=== PATIENT | female | born 1955 | race Caucasian/White ===

== ENCOUNTER 2018-05-24 07:08 | Emergency (ER) | payer BC ==
[2018-05-24 07:25] VITALS: BP 109/69
[2018-05-24] MEDS ORDERED: Acetaminophen TAB* 325 MG PO ONE (07:53)
[2018-05-24 08:05] LABS: Influenza A Molecular POSITIVE (Negative)
--- NOTE | 2018-05-24 08:14 | UC ---
Respiratory Complaint HPI - HPI Summary HPI Summary: Patient is a 62-year-old female with a one-day history of fever chills myalgias. She denies any cough but she hasn't has had some nasal congestion and has been clearing her throat a lot. Nausea vomiting or diarrhea. She denies any chest pain or shortness of breath. She denies any UTI symptoms. She denies any rash. - History of Current Complaint Chief Complaint: UCGeneralIllness Stated Complaint: FEVER BODYACHES Time Seen by Provider: 05/24/18 07:47 Hx Obtained From: Patient Onset/Duration: Gradual Onset Timing: Constant Severity Initially: Mild Severity Currently: Moderate Pain Intensity: 2 Pain Scale Used: 0-10 Numeric Aggravating Factors: Nothing Associated Signs And Symptoms: Positive: Fever, Chills, Nasal Congestion - Allergies/Home Medications Allergies/Adverse Reactions: Allergies Allergy/AdvReac Type Severity Reaction Status Date / Time aspirin Allergy Severe See Comment Verified 05/24/18 07:44 PMH/Surg Hx/FS Hx/Imm Hx Previously Healthy: Yes Cardiovascular History: Hypertension - Surgical History Surgical History: Yes Surgery Procedure, Year, and Place: TUBAL LIGATION 1980 - Family History Known Family History: Positive: Hypertension - Social History Alcohol Use: None Substance Use Type: None Smoking Status (MU): Never Smoked Tobacco Review of Systems All Other Systems Reviewed And Are Negative: Yes Constitutional: Positive: Fever, Chills, Fatigue Skin: Positive: Negative Eyes: Positive: Negative ENT: Positive: Nasal Discharge Respiratory: Positive: Negative Cardiovascular: Positive: Negative Gastrointestinal: Positive: Negative Genitourinary: Positive: Negative Motor: Positive: Negative Neurovascular: Positive: Negative Musculoskeletal: Positive: Arthralgia, Myalgia Neurological: Positive: Negative Psychological: Positive: Negative Physical Exam Triage Information Reviewed: Yes Appearance: Well-Appearing, No Pain Distress, Well-Nourished Vital Signs: Initial Vital Signs Temp 101.5 F 05/24/18 07:18 Pulse 120 05/24/18 07:18 Resp 16 05/24/18 07:18 BP 109/69 05/24/18 07:18 Pulse Ox 98 05/24/18 07:18 Vital Signs Reviewed: Yes Eyes: Positive: Conjunctiva Clear ENT: Positive: Hearing grossly normal, Pharynx normal, Nasal congestion, TMs normal, Uvula midline. Negative: Tonsillar swelling, Tonsillar exudate, Trismus , Muffled voice, Hoarse voice, Sinus tenderness Neck: Positive: Supple, Nontender, No Lymphadenopathy Respiratory: Positive: Lungs clear, Normal breath sounds, No respiratory distress Cardiovascular: Positive: RRR Musculoskeletal: Positive: ROM Intact, No Edema Neurological: Positive: Alert Psychological Exam: Normal Skin Exam: Normal UC Diagnostic Evaluation - Laboratory O2 Sat by Pulse Oximetry: 98 - normal/not hypoxic Diagnostic Studies Comment: UA + leuks. Influenza A (+) Respiratory Course/Dx - Differential Dx/Diagnosis Provider Diagnosis: Influenza A Discharge - Sign-Out/Discharge Documenting (check all that apply): Patient Departure All imaging exams completed and their final reports reviewed: No Studies - Discharge Plan Condition: Stable Disposition: HOME Prescriptions: Oseltamivir CAP* [Tamiflu CAP*] 75 mg PO BID #10 cap Patient Education Materials: Influenza (ED) Referrals: Tiffany Lowe MD [Primary Care Provider] - 5 Days (if not better) Additional Instructions: rest tylenol for pain or fever recheck for new or worsening symptoms - Billing Disposition and Condition Condition: STABLE Disposition: Home
--- NOTE | 2018-05-25 16:17 | UC ---
- Progress Note Progress Note: 05/25/2018 Throat culture positive for Strep Group B. Pt was also Positive for Influenza A and Rx Tamiflu at the clinic. Please call back patient and inform her of results and advised and a Rx of Amoxicillin PO was sent to the pharmacy. Thank you Comfort Shultz PA-C Course/Dx - Diagnoses Provider Diagnoses: Influenza A Discharge - Sign-Out/Discharge Documenting (check all that apply): Patient Departure - D/C home All imaging exams completed and their final reports reviewed: No Studies - Discharge Plan Condition: Stable Disposition: HOME Prescriptions: Amoxicillin PO (*) [Amoxicillin 500 MG CAP*] 500 mg PO Q12H #20 cap Oseltamivir CAP* [Tamiflu CAP*] 75 mg PO BID #10 cap Patient Education Materials: Influenza (ED) Referrals: Tiffany Lowe MD [Primary Care Provider] - 5 Days (if not better) Additional Instructions: rest tylenol for pain or fever recheck for new or worsening symptoms - Billing Disposition and Condition Condition: STABLE Disposition: Home
--- NOTE | 2018-05-26 12:45 | UC ---
- Progress Note Progress Note: Urine culture final: Group B strep Patient was started on amoxicillin on 05/25/18. No change in plan. Course/Dx - Diagnoses Provider Diagnoses: Influenza A Discharge - Sign-Out/Discharge Documenting (check all that apply): Post-Discharge Follow Up All imaging exams completed and their final reports reviewed: No Studies - Discharge Plan Condition: Stable Disposition: HOME Prescriptions: Amoxicillin PO (*) [Amoxicillin 500 MG CAP*] 500 mg PO Q12H #20 cap Oseltamivir CAP* [Tamiflu CAP*] 75 mg PO BID #10 cap Patient Education Materials: Influenza (ED) Referrals: Tiffany Lowe MD [Primary Care Provider] - 5 Days (if not better) Additional Instructions: rest tylenol for pain or fever recheck for new or worsening symptoms - Billing Disposition and Condition Condition: STABLE Disposition: Home
== END 2018-05-24 08:20 | disposition home or self-care (01) ==
LOC: UCEAST 07:08
DX: J10.1 Influenza due to other identified influenza virus with other respiratory manifestations (principal)
CPT/HCPCS: 81003; 87086; 87088; 99212; A9270-GY; G0463

== ENCOUNTER 2019-01-17 10:48 | Emergency (ER) | payer BC ==
--- NOTE | 2019-01-17 11:13 | ED ---
GI/ HPI - HPI Summary HPI Summary: This patient is a 63 year old female presenting to [facility] with a chief complaint of possible hernia since 2 days ago. She saw her PCP with LLQ pain and her PCP told her to come here after potentially palpating the hernia. She states the pain is an intermittent pain and that the pain increases with coughing and straining. She states she is not currently in any pain. She states she has had a poor appetite today and reports nausea. When she has pain, she rates it 5/10 in severity. Pt denies any fever, chills, erythema of eyes, sore throat, CP, SOB , cough, vomiting, dysuria, hematuria, myalgia, edema, rash, or dizziness. - History of Current Complaint Chief Complaint: EDAbdPain Time Seen by Provider: 01/17/19 11:06 Stated Complaint: POSS HERNIA PER PT Hx Obtained From: Patient Timing: Lasting Days Pain Intensity: 5 Location of Pain: LLQ - Allergy/Home Medications Allergies/Adverse Reactions: Allergies Allergy/AdvReac Type Severity Reaction Status Date / Time aspirin Allergy Severe See Comment Verified 01/17/19 10:51 PMH/Surg Hx/FS Hx/Imm Hx Endocrine/Hematology History: Denies: Hx Diabetes, Hx Thyroid Disease Cardiovascular History: Reports: Hx Hypertension - on med Denies: Hx Pacemaker/ICD Respiratory History: Denies: Hx Asthma, Hx Chronic Obstructive Pulmonary Disease (COPD), Other Respiratory Problems/Disorders GI History: Denies: Hx Ulcer Sensory History: Denies: Hx Hearing Aid Psychiatric History: Denies: Hx Panic Disorder - Cancer History Hx Chemotherapy: No Hx Radiation Therapy: No - Surgical History Surgery Procedure, Year, and Place: TUBAL LIGATION 1980 Infectious Disease History: No Infectious Disease History: Denies: Hx Clostridium Difficile, Hx Hepatitis, Hx Human Immunodeficiency Virus (HIV), Hx of Known/Suspected MRSA, Hx Shingles, Hx Tuberculosis, Hx Known/ Suspected VRE, Traveled Outside the [place] in Last 30 Days - Family History Known Family History: Positive: Hypertension - Social History Alcohol Use: None Substance Use Type: Reports: None Hx Tobacco Use: No Smoking Status (MU): Never Smoked Tobacco Review of Systems Negative: Fever, Chills Negative: Erythema Negative: Sore Throat Negative: Chest Pain Negative: Shortness Of Breath, Cough Positive: Abdominal Pain, Nausea. Negative: Vomiting Negative: dysuria, hematuria Negative: Myalgia, Edema Negative: Rash Neurological: Other - Neg: Dizziness All Other Systems Reviewed And Are Negative: No Physical Exam - Summary Physical Exam Summary: Constitutional: Well-developed, Well-nourished, Alert. (-) Distressed Skin: Warm, Dry HENT: Normocephalic; Atraumatic Eyes: Conjunctiva normal Neck: Musculoskeletal ROM normal neck. (-) JVD, (-) Stridor, (-) Tracheal deviation Cardio: Rhythm regular, rate normal, Heart sounds normal; Intact distal pulses; The pedal pulses are 2+ and symmetric. Radial pulses are 2+ and symmetric. (-) Murmur Pulmonary/Chest wall: Effort normal. (-) Respiratory distress, (-) Wheezes, (-) Rales Abd: Soft, (-) tenderness, (-) Distension, (-) Guarding, (-) Rebound Musculoskeletal: (-) Edema Lymph: (-) Cervical adenopathy Neuro: Alert, Oriented x3 Psych: Mood and affect Normal Rectal: Rn Field Case Manager Crissy present. Palpable umbilical hernia with mild tenderness. Triage Information Reviewed: Yes Vital Signs On Initial Exam: Initial Vitals Temp Pulse Resp BP Pulse Ox 99.3 F 100 20 118/88 98 01/17/19 10:51 01/17/19 10:51 01/17/19 10:51 01/17/19 10:51 01/17/19 10:51 Vital Signs Reviewed: Yes Diagnostics - Vital Signs Vital Signs Temp Pulse Resp BP Pulse Ox 01/17/19 10:51 99.3 F 100 20 118/88 98 - Laboratory Result Diagrams: 01/17/19 11:51 01/17/19 11:57 Lab Statement: Any lab studies that have been ordered have been reviewed, and results considered in the medical decision making process. - CT Abd/Pel CT Interpretation Completed By: Radiologist Summary of CT Findings: Thickening of the wall of the sigmoid colon with adjacent interstitial stranding nonspecific although most consistent with diverticulitis. Consider a follow-up. ED Provider has reviewed this report. GIGU Course/Dx - Course Course Of Treatment: This patient is a 63 year old female presenting to [facility] with a chief complaint of possible hernia. Physical exam was remarkable for an umbilical hernia, with no signs of obstruction or strangulation. CT Abd/Pel was suggestive of diverticulitis. A plan for discharge and follow up with PCP and surgery was discussed with the patient and she was agreeable with this plan. - Diagnoses Provider Diagnoses: Diverticulitis, Umbilical hernia Discharge ED - Sign-Out/Discharge Documenting (check all that apply): Patient Departure - Discharge Patient Received Moderate/Deep Sedation with Procedure: No - Discharge Plan Condition: Stable Disposition: HOME Prescriptions: Ciprofloxacin TAB* [Cipro 500 MG TAB*] 500 mg PO BID #20 tab Ciprofloxacin TAB* [Cipro 500 MG TAB*] 500 mg PO BID #20 tab HYDROcodone/ACETAMIN 5-325 MG* [Beaver 5-325 TAB*] 1 tab PO Q6H PRN #10 tab MDD 4 PRN Reason: Pain - Severe HYDROcodone/ACETAMIN 5-325 MG* [Beaver 5-325 TAB*] 1 tab PO Q6H PRN #10 tab MDD 4 PRN Reason: Pain - Severe metroNIDAZOLE [Flagyl 500 MG TAB] 500 mg PO TID #30 tab metroNIDAZOLE [Flagyl 500 MG TAB] 500 mg PO TID #30 tab Patient Education Materials: Umbilical Hernia (ED), Diverticulitis (ED) Referrals: Tiffany Lowe MD [Primary Care Provider] - [facility] [Provider Group] Additional Instructions: Follow up with your primary care provider and surgery in 3 days. Return to the ED with new or worsening symptoms. - Attestation Statements Document Initiated by Scribe: Yes Documenting Scribe: Sameer Rosario Provider For Whom Scribe is Documenting (Include Credential): Willy Rendon MD Scribe Attestation: Sameer Cook, scribed for Willy Rendon MD on 01/17/19 at 1348. Status of Scribe Document: Ready
[2019-01-17] MEDS ORDERED: NS 0.9% 500 ML* 500 ML IV ONE (11:27)
[2019-01-17] MEDS ORDERED: Morphine 4 MG/ML VIAL (1 ml) 4 MG/ML VIAL IV ONE (11:27)
[2019-01-17] MEDS ORDERED: Ondansetron INJ* 2 MG/ML VIAL IV ONE (11:27)
[2019-01-17 12:13] LABS: ABS Basophils 0.1 10^3/ul (0-0.2); ABS Eosinophils 0.1 10^3/ul (0-0.6); ABS Lymphocytes 1.8 10^3/ul (1.0-4.8); ABS Monocytes 0.9 10^3/ul (0-0.8); ABS Neutrophils 10.6 10^3/ul (1.5-7.7); Eosinophil % 0.4 %; Hematocrit 41 % (35-47); Hemoglobin 14.3 g/dL (12.0-16.0); Lymphocyte % 13.7 %; Mean Corpuscular HGB Conc 35 g/dL (31-36); Mean Corpuscular Hemoglobin 31 pg (27-31); Mean Corpuscular Volume 89 fL (80-97); Mean Platelet Volume 7.7 fL (7.4-10.4); Nucleated Red Blood Cells % 0.2; Platelet Count 391 10^3/uL (150-450); Red Blood Count 4.64 10^6 /uL (3.70-4.87); Red Cell Distribution Width 13 % (10-15); White Blood Count 13.4 10^3/uL (3.5-10.8)
--- OUTSIDE RECORDS SUMMARY | 2019-01-17 12:20 | XMS REPORT | Continuity of Care Document ---
:1955 External Reference #:[id number] Author Name Ángel Nunez N.P. Address [address] [place] [address] [address] [place] [address] Problems Active Problems Provider Date Osteoarthritis Tiffany Lowe M.D. Onset: 01/16/2013 Seasonal allergy Maida Lang FNP Onset: 01/09/2014 Environmental allergy Maida Lang FNP Onset: 01/09/2014 Peptic reflux disease Olivia Abbasi FNP Onset: 09/09/2013 Benign essential hypertension Olivia Abbasi FNP Onset: 01/09/2014 Binocular vision disorder Tiffany Lowe M.D. Onset: 08/05/2014 Atopic dermatitis Tiffany Lowe M.D. Onset: 08/05/2014 Chronic allergic conjunctivitis Tiffany Lowe M.D. Onset: 08/05/2014 Mixed hyperlipidemia Tiffany Lowe M.D. Onset: 08/05/2014 Vitamin D deficiency Tiffany Lowe M.D. Onset: 02/23/2015 Social History Type Date Description Comments Sex Unknown ETOH Use Denies alcohol use Tobacco Use Start: Unknown Patient has never smoked Smoking Status Reviewed: 06/11/17 Patient has never smoked Allergies, Adverse Reactions, Alerts Active Allergies Reaction Severity Comments Date Aspirin 01/16/2013 Inactive Allergies NKDA 01/16/2013 Medications Active Medications SIG Qnty Indications Ordering Date Provider Nystatin-Triamcinolone apply to 30gm B35.4 Tiffany Lowe 08/06/2018 affected area Tenisha Garcia 492864-2.1Unit/GM-% twice a day as Ointment needed Ibuprofen 1 by mouth 90tabs M54.5 [facility] 01/15/2018 800mg Tablets three times a M., M.D. day as needed Pantoprazole Sodium 1 by mouth 90tabs B37.3 [facility] 09/04/2016 40mg Tablets every day M., M.DHayden QUINTEROS Vitamin D3 2 by mouth 90caps B37.3 [facility] 02/23/2015 1000Unit Capsules every day M., M.D. Hydrochlorothiazide take 1 tablet 90tabs I10 [facility] 01/23/2014 25mg Tablets by mouth in in M., M.D. the morning daily I10 Immunizations CPT Code Status Date Vaccine Lot # [id number] Given 01/02/2007 Td 7 Years And Older Vital Signs Date Vital Result Comment 01/17/2019 9:34am BP Systolic 118 mmHg BP Diastolic 88 mmHg Height 61 inches 5'1" Weight 162.00 lb BMI (Body Mass Index) 30.6 kg/m2 Heart Rate 103 /min Respiratory Rate 16 /min 08/06/2018 1:53pm BP Systolic 116 mmHg BP Diastolic 64 mmHg Height 61 inches 5'1" Weight 166.00 lb BMI (Body Mass Index) 31.4 kg/m2 Heart Rate 88 /min Respiratory Rate 18 /min Results Test Date Facility Test Result H/L Range Note CBC With Diff 08/06/2018 [facility] WBC 9.1 10*3/uL (4.1-11.0) [address] [facility] (607)- - RBC 4.52 10*6/uL (4.00-5.40) HGB 13.8 g/dL (12.0-16.0) HCT 41.4 % (36.0-47.0) MCV 91.4 fL (80.0-95.0) MCH 30.6 pg (27.0-32.0) MCHC 33.4 g/dL (32.0-36.0) RDW 13.2 % (10.5-14.5) PLT 393 10*3/uL (150-450) MPV 8.1 fL (7.1-10.7) Neut % 56.0 % (35.0-75.0) Lymph % 34.0 % (16.0-52.0) [place] % 7.8 % (0.0-8.0) Eos % 1.9 % (0.0-5.0) Baso % 0.3 % (0.0-4.0) Neut # 5.1 10*3/uL (1.8-7.7) Lymph # 3.1 10*3/uL (1.2-4.8) [place] # 0.7 10*3/uL (0.0-0.8) Eos # 0.2 10*3/uL (0.0-0.5) Baso # 0.0 10*3/uL (0.0-0.2) CMP 08/06/2018 [facility] Sodium 139 mmol/L (136-145) [facility] (607)- - Potassium 3.6 mmol/L (3.6-5.2) Chloride 102 mmol/L (100-108) Co2 30 mmol/L (22-31) Anion Gap 7 mmol/L (7-16) Urea Nitrogen 12 mg/dL (7-24) Creatinine 0.98 mg/dL (0.60-1.00) BUN/Creat Ratio 12.2 RATIO (10.0-20.0) Glucose 114 mg/dL High (70-99) Calcium 9.2 mg/dL (8.4-10.2) Total Protein 7.8 g/dL (6.4-8.2) Albumin 3.9 g/dL (3.2-4.5) Globulin 3.9 g/dL (2.7-4.3) Alb/Glob Ratio 1.0 RATIO Alkaline Phosphatase 55 U/L (45-117) Bilirubin,Total 0.6 mg/dL (0.0-1.0) Ast (Sgot) 15 U/L (11-39) Alt (SGPT) 23 U/L (12-78) GFR 58 ml/min/1.73m2 Low (>59) GFR ( Amer) >60 ml/min/1.73m2 (>59) GFR Interpretation <SEE NOTE> 1 Lipid 08/06/2018 [facility] Cholesterol @ 209 mg/dL High (0-200) [facility] (607)- - Triglyceride @ 326 mg/dL High (30-200) HDL Cholesterol @ 35 mg/dL Low (>40) 2 Chol/HDL Ratio 6.0 RATIO 3 LDL Chol (Calc) UNABLE TO CALCUL <SEE NOTE> mg/dL (<130) 4 Laboratory 08/06/2018 [facility] TSH,Ultrasensitive @ 2.400 (0.360- 4.170) test finding [address] [facility] mIU/L (607)- - 25 Hydroxy Vit D @ 36 ng/mL (31-100) 5 Direct LDL @ 118 mg/dL (<130) 6 1 NORMAL KIDNEY FUNCTION OR MILD DISEASE - GFR >OR= 60 CHRONIC KIDNEY DISEASE - GFR 15 - 59 RENAL FAILURE - GFR <15 Est. GFR calculation based on the MDRD study equation, which assumes a steady state for creatinine. Est. GFR should not be used for medication dosing. 2 PER NCEP ATP III GUIDELINES: RESULTS LOWER THAN 40 MG/DL ARE SUGGESTIVE OF INCREASED RISK FOR CORONARY ARTERY DISEASE. RESULTS > OR = TO 60 MG/DL ARE CONSIDERED A NEGATIVE RISK FACTOR. 3 INTERPRETATION OF CHOL-HDL RATIO CHD RISK FEMALE MALE VERY HIGH >8.3 >14.3 HIGH 5.6- 8.3 6.7- 14.3 AVERAGE 3.7- 5.6 4.0- 6.7 BELOW AVERAGE 2.5- 3.7 2.7- 4.0 PROTECTED <2.5 <2.7 4 UNABLE TO CALCULATE VALID LDL DUE TO INTERFERENCE FROM ELEVATED TRIGLYCERIDES (GREATER THAN 300 MG/DL). SEE RESULT FOR DIRECT LDL. 5 A REVIEW OF THE LITERATURE SUGGESTS THE FOLLOWING RANGES FOR THE CLASSIFICATION OF 25-OH VITAMIN D STATUS: VITAMIN D STATUS 25-OH VITAMIN D DEFICIENCY <20 NG/ML INSUFFICIENCY 20-30 NG/ML SUFFICIENCY 31 - 100 NG/ML TOXICITY > 100 NG/ML A PEDIATRIC REFERENCE RANGE HAS NOT BEEN ESTABLISHED USING THIS METHOD. 6 PER NCEP ATP III GUIDELINES: OPTIMAL < 100 NEAR OPTIMAL 100 - 129 BORDERLINE HIGH 130 - 159 HIGH 160 - 189 VERY HIGH > 189 Procedures Date Code Description Status 08/06/2018 27340 EKG Completed Medical Devices Description No Information Available Encounters Type Date Location Provider Dx Diagnosis Office Visit 01/17/2019 [facility] Ángel Nunez, I10 Essential ( primary) 9:30a N.P. hypertension E78.2 Mixed hyperlipidemia K21.0 Gastro-esophageal reflux disease with esophagitis M15.9 Polyosteoarthritis, unspecified E55.9 Vitamin D deficiency, unspecified J30.9 Allergic rhinitis, unspecified L20.9 Atopic dermatitis, unspecified M79.605 Pain in left leg B35.4 Tinea corporis M54.5 Low back pain I44.4 Left anterior fascicular block R10.84 Generalized abdominal pain K42.9 Umbilical hernia without obstruction or gangrene Z68.31 Body mass index (BMI) 31.0-31.9, adult Office Visit 08/06/2018 2:15p [facility] Tiffany Lowe I10 Essential ( primary) Tenisha Garcia hypertension E78.2 Mixed hyperlipidemia K21.0 Gastro-esophageal reflux disease with esophagitis M15.9 Polyosteoarthritis, unspecified E55.9 Vitamin D deficiency, unspecified Z68.31 Body mass index (BMI) 31.0-31.9, adult J30.9 Allergic rhinitis, unspecified L20.9 Atopic dermatitis, unspecified M79.605 Pain in left leg B35.4 Tinea corporis Z00.01 Encounter for general adult medical exam w abnormal findings M54.5 Low back pain I44.4 Left anterior fascicular block Assessments Date Code Description Provider 01/17/2019 I10 Essential (primary) hypertension Ángel Nunez, N.P. 01/17/2019 E78.2 Mixed hyperlipidemia Ángel Nunez, N.P. 01/17/2019 K21.0 Gastro-esophageal reflux disease with Ángel Nunez N.P. esophagitis 01/17/2019 M15.9 Polyosteoarthritis, unspecified Ángel Nunez, N.P. 01/17/2019 E55.9 Vitamin D deficiency, unspecified Ángel Nunez, N.P. 01/17/2019 J30.9 Allergic rhinitis, unspecified Ángel Nunez N.P. 01/17/2019 L20.9 Atopic dermatitis, unspecified Ángel Nunez N.PHayden 01/17/2019 M79.605 Pain in left leg Ángel Nunez N.P. 01/17/2019 B35.4 Tinea corporis Ángel Nunez N.P. 01/17/2019 M54.5 Low back pain Maria Dolores Lee.P. 01/17/2019 I44.4 Left anterior fascicular block Ángel Nunez N.P. 01/17/2019 R10.84 Generalized abdominal pain Ángel Nunez N.P. 01/17/2019 K42.9 Umbilical hernia without obstruction or Ángel Nunez N.PHayden gangrene 01/17/2019 Z68.31 Body mass index (BMI) 31.0-31.9, adult Ángel Nunez N.P. 08/06/2018 I10 Essential (primary) hypertension Tiffany Lowe M.D. 08/06/2018 E78.2 Mixed hyperlipidemia Tiffany Lowe M.D. 08/06/2018 K21.0 Gastro-esophageal reflux disease with Tiffany Lowe M.D. esophagitis 08/06/2018 M15.9 Polyosteoarthritis, unspecified Tiffany Lowe M.D. 08/06/2018 E55.9 Vitamin D deficiency, unspecified Tiffany Lowe M.D. 08/06/2018 Z68.31 Body mass index (BMI) 31.0-31.9, adult Tiffany Lowe M.D. 08/06/2018 J30.9 Allergic rhinitis, unspecified Tiffany Lowe M.D. 08/06/2018 L20.9 Atopic dermatitis, unspecified Tiffany Lowe M.D. 08/06/2018 M79.605 Pain in left leg Tiffany Lowe M.D. 08/06/2018 B35.4 Tinea corporis Tiffany Lowe M.D. 08/06/2018 Z00.01 Encounter for general adult medical Tiffany Lowe M.D. examination with abnorma 08/06/2018 M54.5 Low back pain Tiffany Lowe M.D. 08/06/2018 I44.4 Left anterior fascicular block Tiffany Lowe M.D. Plan of Treatment No Information Available Functional Status Functional Condition Comment Date Status Glasses Active Bifocal glasses Active Mental Status Description No Information Available Referrals Description No Information Available
[2019-01-17 12:28] LABS: Albumin 4.3 g/dL (3.2-5.2); Albumin/Globulin Ratio 1.2 (1-3); BUN/Creatinine Ratio 16.7 (8-20); C Reactive Protein 66.89 mg/L (<8.01); Calcium 10.2 mg/dL (8.6-10.3); EGFR Non-African American 51.2 (>60); Globulin 3.7 g/dL (2-4); Potassium 3.5 mmol/L (3.5-5.0); Total Bilirubin 1.1 mg/dL (0.2-1.0)
[2019-01-17] MEDS ORDERED: Iodixanol* (CONTRAST) 320 MG/ML 100 ML SDV IV ONE (12:30)
[2019-01-17 13:28] LABS: Urine Appearance Clear; Urine Bacteria Absent (Absent); Urine Bilirubin Negative (Negative); Urine Blood 1+ (Negative); Urine Color Straw; Urine Glucose Negative (Negative); Urine Ketones Negative (Negative); Urine Nitrite Negative (Negative); Urine Protein Negative (Negative); Urine Red Blood Cell 1+(3-5/hpf) (Absent); Urine Specific Gravity 1.005 (1.010-1.030); Urine Squamous Epithelial Cell Present (Absent); Urine Urobilinogen Negative (Negative); Urine White Blood Cell Trace(0-5/hpf) (Absent)
[2019-01-17] MEDS ORDERED: Ciprofloxacin TAB* 500 MG PO ONE (13:34)
[2019-01-17] MEDS ORDERED: metroNIDAZOLE TAB* 250 MG PO ONE (13:34)
[2019-01-17 14:21] VITALS: BP 119/79
--- NOTE | 2019-01-21 05:41 | PN ---
Progress Note - Progress Note Date of Service: 01/17/19 Note: Patient was given ciprofloxacin which is not sensitive to organism. Patient will be given macrobid which is sensitive to MRSA 75-100,000 Called patient at 730am to make aware Will medicinal plant picker at pharmacy
== END 2019-01-17 14:15 | disposition home or self-care (01) ==
LOC: ED 10:48
DX: K57.32 Diverticulitis of large intestine without perforation or abscess without bleeding (principal); K42.9 Umbilical hernia without obstruction or gangrene; R11.0 Nausea; I10 Essential (primary) hypertension; Z88.6 Allergy status to analgesic agent
CPT/HCPCS: 36415; 74177; 80053; 81003; 81015; 83605; 83690; 85025; 86140; 87077; 87086; 87186; 96361; 96374; 96375; 99285; A9270-GY; J2270; J2405; Q9967

== ENCOUNTER 2019-03-18 10:44 | Day surgery (SDC) | payer BC ==
[~2019-03-18 10:44] MED LIST: Acetaminophen TAB* 325 MG PO ONE; Buffered Lidocaine 1% SYRIN* 1 ML/SYRINGE INTRADERM ONE; Lactated Ringers 1000 ML Bag* 1,000 ML IV SCH
[2019-03-18] MEDS ORDERED: Acetaminophen TAB* 325 MG ONE (11:41)
[2019-03-18] MEDS ORDERED: ceFAZolin 2 GM in NS PREMIX(*) 2 GM/100 ML BAG IVPB ONE (11:41)
[2019-03-18] MEDS ORDERED: fentaNYL* 50 MCG/ML 2 ML VIAL (100 MCG VIAL) ONE (12:08)
[2019-03-18] MEDS ORDERED: Midazolam* 1 MG/ML 2 ML VIAL (2 MG) ONE (12:08)
[2019-03-18] MEDS ORDERED: Propofol* 10 MG/ML 20 ML BTL ONE (12:11)
[2019-03-18] MEDS ORDERED: Lidocaine 1% INJ* 10 MG/ML 30 ML SDV ONE (12:49)
[2019-03-18] MEDS ORDERED: Bupivacaine 0.5% W/EPI SDV* 10 ML VIAL INJ ONE (12:49)
[2019-03-18] MEDS ORDERED: Dexamethasone IV* 4 MG/ML 1 ML (4 MG) ONE (13:47)
[2019-03-18] MEDS ORDERED: Ondansetron INJ* 2 MG/ML VIAL IV PRN (13:48)
[2019-03-18] MEDS ORDERED: Naloxone* 0.4 MG/ML 1 ML VIAL IV PRN (13:48)
[2019-03-18] MEDS ORDERED: HYDROmorphone INJ1* 1 MG/ML SYRINGE IV PRN (13:48)
[2019-03-18] MEDS ORDERED: oxyCODONE TAB* 5 MG TAB PO PRN (13:48)
[2019-03-18] MEDS ORDERED: EPHEDrine (Pressors)* 50 MG/ML VIAL ONE (13:48)
[2019-03-18] MEDS ORDERED: PROCHLORPERAZINE INJ 5 MG/ML 2 ML VIAL IV PRN (13:48)
[2019-03-18] MEDS ORDERED: diPHENhydraMINE IV* 50 MG/ML 1 ml VIAL (BENADRYL) IV PRN (13:48)
[2019-03-18 15:58] VITALS: BP 113/68
--- NOTE | 2019-03-18 20:50 | OP ---
CC: Dr. Tiffany Zamoranoi * DATE OF OPERATION: 03/18/19 - [facility] DATE OF : 55 SURGEON: Rodo Schultz MD PHOTOTYPESETTER OPERATOR: SHANICE Puga ANESTHESIOLOGIST: Sherri Colunga MD ANESTHESIA: General. PRE-OP DIAGNOSIS: Umbilical hernia. POST-OP DIAGNOSIS: Umbilical hernia. OPERATIVE PROCEDURE: Open repair umbilical hernia. ESTIMATED BLOOD LOSS: Minimal. IV FLUIDS: Crystalloid. SPECIMEN: None. DRAINS: None. COMPLICATIONS: None. COUNTS: Instrument, needle, and sponge counts were correct. OPERATIVE FINDIN cm umbilical hernia defect containing fat. DESCRIPTION OF PROCEDURE: The patient was brought to the operating room and placed on the table supine. Sequential compression devices were placed in both lower extremities. General anesthesia was administered. The patient's abdomen was prepped and draped in the usual sterile fashion. She received appropriate intravenous antibiotics and time-out was performed. Local anesthetic was infiltrated periumbilically. An infraumbilical incision was created and then sharp and blunt dissection were used to isolate the umbilical stalk. There was fat incarcerated within the hernia sac and this was dissected free from the periumbilical skin. The umbilical stalk was completely divided from the anterior abdominal wall and the hernia sac was dissected free. The omentum that was contained within the hernia was reduced. The edges of the hernia defect were identified. This measured approximately 1 cm. Closure was performed with a 0 Ethibond suture in [id number] fashion. After completing closure, the umbilical stalk was reapproximated with 3-0 Vicryl to the anterior abdominal wall. The wound was closed in 2 layers with 3-0 Vicryl for the subcutaneous tissues and 4- 0 Monocryl for the skin in a subcuticular fashion. Steri-Strips and dressing were applied. The patient tolerated the procedure well and was extubated uneventfully, transferred to recovery in stable condition. [id number]/[facility] #: [id number] MTDD
== END 2019-03-18 15:47 | disposition home or self-care (01) ==
LOC: OR 10:44
PROVIDERS: ATTEND Surgery
PROC: 0WQF0ZZ Repair Abdominal Wall, Open Approach (ICD-10-PCS; principal; 2019-03-18 14:15)
DX: K42.9 Umbilical hernia without obstruction or gangrene (principal); I10 Essential (primary) hypertension; K21.9 Gastro-esophageal reflux disease without esophagitis; Z88.6 Allergy status to analgesic agent; Z98.51 Tubal ligation status
CPT/HCPCS: A9270-GY; J0690; J1100; J2250; J2704; J3010

== ENCOUNTER 2019-06-11 07:36 | Emergency (ER) | payer BC ==
--- OUTSIDE RECORDS SUMMARY | 2019-06-11 07:46 | XMS REPORT | Continuity of Care Document ---
:1955 External Reference #:[id number] Author Name Tiffany Lowe M.D. Address [address] [place] [address] [place] [id number] Problems Active Problems Provider Date Osteoarthritis Tiffany [...] Tiffany Lowe 08/06/2018 affected area Tenisha Garcia 845178-6.1Unit/GM-% twice a day as Ointment needed Ibuprofen 1 by mouth 90tabs M54.5 [facility] 01/15/2018 800mg Tablets three times a M., M.D. day as needed Pantoprazole Sodium 1 by mouth 90tabs B37.3 [facility] 09/04/2016 40mg Tablets every day M., M.DHayden QUINTEROS Vitamin D3 2 by mouth 90caps B37.3 [facility] 02/23/2015 1000Unit Capsules every day M., M.D. Hydrochlorothiazide take 1 tablet 90tabs I10 [facility] 01/23/2014 25mg Tablets by mouth in in M., M.D. the morning daily I10 History Medications Cipro tab 1 twice a 30tabs [facility], 03/06/2019 - 500mg Tablets day M.D. 05/31/2019 Meclizine HCL take one tablet 180tabs H81.13 [facility], 01/22/2019 - 25mg by mouth every 4 M.D. 05/31/2019 Tablets hours as needed Immunizations CPT Code Status Date Vaccine Lot # [id number] Given 01/02/2007 Td 7 Years And Older Vital Signs Date Vital Result Comment 06/04/2019 2:40pm BP Systolic 120 mmHg BP Diastolic 60 mmHg Height 61 inches 5'1" Weight 162.00 lb BMI (Body Mass Index) 30.6 kg/m2 Heart Rate 80 /min Respiratory Rate 16 /min 03/12/2019 9:03am BP Systolic 125 mmHg BP Diastolic 67 mmHg Height 61 inches 5'1" Weight 160.00 lb BMI (Body Mass Index) 30.2 kg/m2 Heart Rate 75 /min Respiratory Rate 16 /min Results Test Acquired Date Facility Test Result H/L Range Note Laboratory test 06/04/2019 [facility] [place] TSH, <pending> finding [address] [facility] (607)- - Vitamin D 25 Hydroxy <pending> CBC Auto Diff 01/17/2019 [facility] White Blood 13.4 10^3/uL High 3.5 -10.8 Count Red Blood Count 4.64 10^6/uL Normal 3.70-4.87 Hemoglobin 14.3 g/dL Normal 12.0-16.0 Hematocrit 41 % Normal 35-47 Mean Corpuscular Volume 89 fL Normal 80-97 Mean Corpuscular Hemoglobin 31 pg Normal 27-31 Mean Corpuscular HGB Conc 35 g/dL Normal 31-36 Red Cell Distribution Width 13 % Normal 10-15 Platelet Count 391 10^3/uL Normal 150-450 Mean Platelet Volume 7.7 fL Normal 7.4-10.4 Abs Neutrophils 10.6 10^3/uL High 1.5-7.7 Abs Lymphocytes 1.8 10^3/uL Normal 1.0-4.8 Abs Monocytes 0.9 10^3/uL High 0-0.8 Abs Eosinophils 0.1 10^3/uL Normal 0-0.6 Abs Basophils 0.1 10^3/uL Normal 0-0.2 Abs Nucleated RBC 0.0 10^3/uL Granulocyte % 79.0 % Lymphocyte % 13.7 % Monocyte % 6.3 % Eosinophil % 0.4 % Basophil % 0.6 % Nucleated Red Blood Cells % 0.2 Laboratory test 01/17/2019 [facility] Lactic Acid 1.5 mmol/L Normal 0.5-2.0 1 finding Comp Metabolic 01/17/2019 [facility] Sodium 136 mmol/L Normal 135- 145 Panel Potassium 3.5 mmol/L Normal 3.5-5.0 Chloride 97 mmol/L Low 101-111 Co2 Carbon Dioxide 29 mmol/L Normal 22-32 Anion Gap 10 mmol/L Normal 2-11 Glucose 145 mg/dL High 70-100 Blood Urea Nitrogen 18 mg/dL Normal 6-24 Creatinine 1.08 mg/dL High 0.51-0.95 BUN/Creatinine Ratio 16.7 Normal 8-20 Calcium 10.2 mg/dL Normal 8.6-10.3 Total Protein 8.0 g/dL Normal 6.4-8.9 Albumin 4.3 g/dL Normal 3.2-5.2 Globulin 3.7 g/dL Normal 2-4 Albumin/Globulin Ratio 1.2 Normal 1-3 Total Bilirubin 1.10 mg/dL High 0.2-1.0 Alkaline Phosphatase 55 U/L Normal 34-104 Alt 15 U/L Normal 7-52 Ast 16 U/L Normal 13-39 Egfr Non- 51.2 >60 Egfr 62.0 >60 2 Laboratory test finding 01/17/2019 [facility] Lipase 17 U/L Normal 11.0-82.0 C Reactive Protein 66.89 mg/L High <8.01 Urinalysis Profile 01/17/2019 [facility] Urine Color Straw Urine Appearance Clear Urine Specific [place] 1.005 Low 1.010-1.030 Urine pH 6.0 Normal 5-9 Urine Urobilinogen Negative Negative Urine Ketones Negative Negative Urine Protein Negative Negative Urine Leukocytes Negative Negative Urine Blood 1+ Abnormal Negative Urine Nitrite Negative Negative Urine Bilirubin Negative Negative Urine Glucose Negative Negative Urine White Blood Cell Trace(0-5/hpf) Absent Urine Red Blood Cell 1+(3-5/hpf) Abnormal Absent Urine Bacteria Absent Absent Urine Squamous Epithelial Cell Present Abnormal Absent Urine Culture And 01/17/2019 [facility] Urine Culture SEE RESULT BELOW 3 Sensitivities 1 [facility] Severe Sepsis and Septic Shock Management Bundle Measure requires all lactic acids initially measuring >2.0 mmol/L be repeated. 2 Because ethnic data is not always readily available, this report includes an eGFR for both -Americans and non- Americans. The National Kidney Disease Education Program (NKDEP) does not endorse the use of the MDRD equation for patients that are not between the ages of 18 and 70, are , have extremes of body size, muscle mass, or nutritional status, or are non- or non-. According to the National Kidney Foundation, irrespective of diagnosis, the stage of the disease is based on the level of kidney function: Stage Description GFR(mL/min/1.73 m(2)) 1 Kidney damage with normal or decreased GFR 90 2 Kidney damage with mild decrease in GFR 60-89 3 Moderate decrease in GFR 30-59 4 Severe decrease in GFR 15-29 5 Kidney failure <15 (or dialysis) 3 SEE RESULT BELOW Name: DONNAKAT A : [address]: Willy Rendon MD Acct: [id number] Unit: [id number] AGE: 63 Location: ED Re01/17/19 SEX: F Status: DEP ER SPEC: [id number] TONY: 01/17/19-1314 [facility] DR: Willy Rendon MD REQ: [id number] RECD: 01/17/19 STATUS: ULISSES FITZPATRICK DR: Tiffany Lowe MD _ SOURCE: URINE SPDESC: ORDERED: Urine Culture Procedure Result Reported Site Urine Culture Final 01/20/19- 0804 ML Organism 1 MRSA [place] Count 75-100,000 (Many) CFU/ML Organism 2 STREP GROUP B [place] Count 10-25,000 (Moderate) CFU/ML Organism 3 NORMAL JOHANA [place] Count 10-25,000 (Moderate) CFU/ML Susceptibility testing of penicillins and other B-lactams approved by FDA for treatment of Streptococcus pyogenes (Group A Strep) and Streptococcus agalactiae (Group B Strep) is not necessary for clinical purposes and need not be done routinely, since as with vancomycin, resistant strains have not been recognized. (CLSI G913-B58;p.66) Positive isolates will be saved for one week. Please call the Microbiology Laboratory if further susceptibility testing is needed. MRSA- CONSISTENT WITH PREVIOUS RESULTS. 1. MRSA M.I.C. RX --------- ------ Penicillin >=0.5 R Gentamicin <=0.5 S Linezolid 2 S Nitrofurantoin <=16 S Oxacillin >=4 R * Quinupristin/Dalfopristin <=0.25 S Rifampin <=0.5 S Tetracycline <=1 S Doxycycline - Deduced S * Minocycline - Deduced S Trimethoprim/Sulfamethoxazole <=10 S Vancomycin 1 S CONTINUED ON NEXT PAGE DEPARTMENT OF PATHOLOGY, [address] [place] [address] Rayshawn Walker M.D. Director [facility] # [id number] Specimen: [id number] Collected: 01/17/19 Received: 01/17/19 (Continued) Procedure Result Reported Site Urine Culture Final (continued) 01/20/19- 803 1. MRSA (continued) M.I.C. RX --------- ------ Imipenem-Deduced R * Ampicillin/Sulbactam-Deduced R Cefazolin-Deduced R * These antibiotics are not available in the [facility] Formulary Contact the Microbiology Department for any additional antibiotic reporting. * ML - Main Lab . END OF REPORT DEPARTMENT OF PATHOLOGY, [address] [place] [address] Rayshawn Walker M.D. Director [facility] # [id number] Procedures Description No Information Available Medical Devices Description No Information Available Encounters Type Date Location Provider Dx Diagnosis Office Visit 06/04/2019 [facility] Tiffany Lowe, I10 Essential ( primary) 2:45p M.D. hypertension E78.2 Mixed hyperlipidemia K21.0 Gastro-esophageal reflux disease with esophagitis M15.9 Polyosteoarthritis, unspecified E55.9 Vitamin D deficiency, unspecified J30.9 Allergic rhinitis, unspecified L20.9 Atopic dermatitis, unspecified B35.4 Tinea corporis M54.5 Low back pain I44.4 Left anterior fascicular block K42.9 Umbilical hernia without obstruction or gangrene K57.32 Dvtrcli of lg int w/o perforation or abscess w/o bleeding H81.13 Benign paroxysmal vertigo, bilateral Office Visit 03/12/2019 9:15a [facility] Ángel Nunez, I10 Essential (primary) N.P. hypertension E78.2 Mixed hyperlipidemia K21.0 Gastro-esophageal reflux disease with esophagitis M15.9 Polyosteoarthritis, unspecified E55.9 Vitamin D deficiency, unspecified J30.9 Allergic rhinitis, unspecified L20.9 Atopic dermatitis, unspecified M79.605 Pain in left leg B35.4 Tinea corporis M54.5 Low back pain I44.4 Left anterior fascicular block R10.84 Generalized abdominal pain K42.9 Umbilical hernia without obstruction or gangrene K57.32 Dvtrcli of lg int w/o perforation or abscess w/o bleeding H81.13 Benign paroxysmal vertigo, bilateral Z68.31 Body mass index (BMI) 31.0-31.9, adult Office Visit 01/22/2019 8:30a [facility] Ángel Nunez, I10 Essential (primary) N.P. hypertension E78.2 Mixed hyperlipidemia K21.0 Gastro-esophageal reflux disease with esophagitis M15.9 Polyosteoarthritis, unspecified E55.9 Vitamin D deficiency, unspecified J30.9 Allergic rhinitis, unspecified L20.9 Atopic dermatitis, unspecified M79.605 Pain in left leg B35.4 Tinea corporis M54.5 Low back pain I44.4 Left anterior fascicular block R10.84 Generalized abdominal pain K42.9 Umbilical hernia without obstruction or gangrene K57.32 Dvtrcli of lg int w/o perforation or abscess w/o bleeding H81.13 Benign paroxysmal vertigo, bilateral Z68.31 Body mass index (BMI) 31.0-31.9, adult Office Visit 01/17/2019 9:30a [facility] Ángel Nunez, I10 Essential (primary) N.P. hypertension E78.2 Mixed hyperlipidemia K21.0 Gastro-esophageal reflux disease with esophagitis M15.9 Polyosteoarthritis, unspecified E55.9 Vitamin D deficiency, unspecified J30.9 Allergic rhinitis, unspecified L20.9 Atopic dermatitis, unspecified M79.605 Pain in left leg B35.4 Tinea corporis M54.5 Low back pain I44.4 Left anterior fascicular block R10.84 Generalized abdominal pain K42.9 Umbilical hernia without obstruction or gangrene Z68.31 Body mass index (BMI) 31.0-31.9, adult Assessments Date Code Description Provider 06/04/2019 I10 Essential (primary) hypertension Tiffany Lowe M.D. 06/04/2019 E78.2 Mixed hyperlipidemia Tiffany Lowe M.D. 06/04/2019 K21.0 Gastro-esophageal reflux disease with Tiffany Lowe M.D. esophagitis 06/04/2019 M15.9 Polyosteoarthritis, unspecified Tiffany Lowe M.D. 06/04/2019 E55.9 Vitamin D deficiency, unspecified Tiffany Lowe M.D. 06/04/2019 J30.9 Allergic rhinitis, unspecified Tiffany Lowe M.D. 06/04/2019 L20.9 Atopic dermatitis, unspecified Tiffany Lowe M.D. 06/04/2019 B35.4 Tinea corporis Tiffany Lowe M.D. 06/04/2019 M54.5 Low back pain Tiffany Lowe M.D. 06/04/2019 I44.4 Left anterior fascicular block Tiffany Lowe M.D. 06/04/2019 K42.9 Umbilical hernia without obstruction or Tiffany Lowe M.D. gangrene 06/04/2019 K57.32 Diverticulitis of large intestine without Tiffany Lowe M.D. perforation or abscess without bleeding 06/04/2019 H81.13 Benign paroxysmal vertigo, bilateral Tiffany Lowe M.D. 03/12/2019 I10 Essential (primary) hypertension Ángel Nunez, N.P. 03/12/2019 E78.2 Mixed hyperlipidemia Ángel Nunez N.P. 03/12/2019 K21.0 Gastro-esophageal reflux disease with Ángel Nunez N.P. esophagitis 03/12/2019 M15.9 Polyosteoarthritis, unspecified Ángel Nunez, N.P. 03/12/2019 E55.9 Vitamin D deficiency, unspecified Ángel Nunez, N.P. 03/12/2019 J30.9 Allergic rhinitis, unspecified Ángel Nunez, N.P. 03/12/2019 L20.9 Atopic dermatitis, unspecified Ángel Nunez, N.P. 03/12/2019 M79.605 Pain in left leg Ángel Nunez N.P. 03/12/2019 B35.4 Tinea corporis Ángel Nunez, N.P. 03/12/2019 M54.5 Low back pain Ángel Nunez N.P. 03/12/2019 I44.4 Left anterior fascicular block Ángel Nunez N.P. 03/12/2019 R10.84 Generalized abdominal pain Ángel Nunez, N.P. 03/12/2019 K42.9 Umbilical hernia without obstruction or Ángel Nunez, N.P. gangrene 03/12/2019 K57.32 Diverticulitis of large intestine without Ángel Nunez, N.P. perforation or abscess without bleeding 03/12/2019 H81.13 Benign paroxysmal vertigo, bilateral Ángel Nunez, N.P. 03/12/2019 Z68.31 Body mass index (BMI) 31.0-31.9, adult Ángel Nunez, N.P. 01/22/2019 I10 Essential (primary) hypertension Ángel Nunez, N.P. 01/22/2019 E78.2 Mixed hyperlipidemia Ángel Nunez, N.P. 01/22/2019 K21.0 Gastro-esophageal reflux disease with Ángel Nunez, N.P. esophagitis 01/22/2019 M15.9 Polyosteoarthritis, unspecified Ángel Nunez, N.P. 01/22/2019 E55.9 Vitamin D deficiency, unspecified Ángel Nunez, N.P. 01/22/2019 J30.9 Allergic rhinitis, unspecified Ángel Nunez, N.P. 01/22/2019 L20.9 Atopic dermatitis, unspecified Ángel Nunez, N.P. 01/22/2019 M79.605 Pain in left leg Ángel Nunez N.P. 01/22/2019 B35.4 Tinea corporis Ángel Nunez N.P. 01/22/2019 M54.5 Low back pain Ángel Nunez N.P. 01/22/2019 I44.4 Left anterior fascicular block Ángel Nunez, N.P. 01/22/2019 R10.84 Generalized abdominal pain Ángel Nunez, N.P. 01/22/2019 K42.9 Umbilical hernia without obstruction or Ángel Nunez, N.P. gangrene 01/22/2019 K57.32 Diverticulitis of large intestine without Ángel Nunez, N.P. perforation or abscess without bleeding 01/22/2019 H81.13 Benign paroxysmal vertigo, bilateral Ángel Nunez, N.P. 01/22/2019 Z68.31 Body mass index (BMI) 31.0-31.9, adult Ángel Nunez, N.P. 01/17/2019 I10 Essential (primary) hypertension Ángel Nunez, N.P. 01/17/2019 E78.2 Mixed hyperlipidemia Ángel Nunez, N.P. 01/17/2019 K21.0 Gastro-esophageal reflux disease with Ángel Nunez, N.P. esophagitis 01/17/2019 M15.9 Polyosteoarthritis, unspecified Ángel Nunez, N.P. 01/17/2019 E55.9 Vitamin D deficiency, unspecified Ángel Nunez, N.P. 01/17/2019 J30.9 Allergic rhinitis, unspecified Ángel Nunez N.P. 01/17/2019 L20.9 Atopic dermatitis, unspecified Ángel Nunez N.P. 01/17/2019 M79.605 Pain in left leg Ángel Nunez N.P. 01/17/2019 B35.4 Tinea corporis Ángel Nunez N.P. 01/17/2019 M54.5 Low back pain Ángel Nunez N.P. 01/17/2019 I44.4 Left anterior fascicular block Ángel Nunez N.P. 01/17/2019 R10.84 Generalized abdominal pain Ángel Nunez N.P. 01/17/2019 K42.9 Umbilical hernia without obstruction or Ángel Nunez N.P. gangrene 01/17/2019 Z68.31 Body mass index (BMI) 31.0-31.9, adult Ángel Nunez N.Kris. Plan of Treatment 06/04/2019 - Tiffany Lowe M.D.I10 Essential (primary) hypertensionComments: CHECK BP TIW ( PRN)DIET AND FLUID COUNSELING LOW SODIUM DIETWT LOSSF/U LABE78.2 Mixed hyperlipidemiaComments:DIET REVIEWED CONTINUE DIETWT LOSSF/U LAB FBWK21.0 Gastro-esophageal reflux disease with esophagitisComments:AVOID CAFFEINE, ETOH AND SPICY FOODSTUMS OR MYLANTA PRN CALL WITH PROBLEMS OR URHPMEILK77.9 Polyosteoarthritis, unspecifiedComments:EXERCISE/HEAT/MESSAGETYLENOL OR MOTRIN PRNAVOID HEAVY LIFTINGWT LOSSE55.9 Vitamin D deficiency, unspecifiedComments: INCREASE EXPOSURE TO SUNREVIEW OF DIETJ30.9 Allergic rhinitis, unspecifiedComments:INCREASE PO FLUID USE ANTIHISTAMINE PRN SECOND HAND SMOKING NAAYYKPFQO19.9 Atopic dermatitis, unspecifiedComments:SKIN CARE INSTRUCTIONS LOTION OR BABY OIL 2-3 APPLICATION PER DAYUSE MOISTURIZING SOAPAVOID PROLONGED WATER EXPOSUREAVOID USING HOT WATER IN BDEMQAV18.4 Tinea corporisComments:SKIN CARE CSWNDEUCMEZES94.5 Low back painComments:EXERCISE/HEAT /MESSAGEAVOID HEAVY LIFTING WT LOSSTYLENOL OR MOTRIN PRNI44.4 Left anterior fascicular blockComments :STABLE AND ASYMPTOMATICF/U WITH CARDIOLOGY PRNK42.9 Umbilical hernia without obstruction or gangreneComments:STABLE ABDOMINAL BINDER PRN WT LOSSK57.32 Diverticulitis of large intestine without perforation or abscess without bleedingComments:STABLE AND CBRLYBKCUMMUW92.13 Benign paroxysmal vertigo, bilateralComments:SAFETY Functional Status Functional Condition Comment Date Status Glasses Active Bifocal glasses Active Mental Status Description No Information Available Referrals Description No Information Available
--- NOTE | 2019-06-11 08:13 | ED ---
GI/ HPI - HPI Summary HPI Summary: This patient is a 63 year old female presenting to [facility] with a chief complaint of LLQ pain since 6 hours ago and diarrhea since 2 days ago. She states the pain is a waxing pain. She denies nausea and vomiting, dysuria, discharge. She has a Hx of diverticulitis 4 months ago. She rates her pain 6/10 in severity. Medications reviewed, allergies noted. - History of Current Complaint Chief Complaint: EDAbdPain Time Seen by Provider: 06/11/19 08:06 Stated Complaint: LT FLANK PAIN PER PT Hx Obtained From: Patient Onset/Duration: Started Hours Ago, Started Days Ago Pain Intensity: 6 - Allergy/Home Medications Allergies/Adverse Reactions: Allergies Allergy/AdvReac Type Severity Reaction Status Date / Time aspirin Allergy Severe See Comment Verified 03/18/19 11:49 Home Medications: Home Medications Vitamin B Complex TAB* [B Complex-50*] 1 tab PO DAILY 06/11/19 [History Confirmed 06/11/19] PMH/Surg Hx/FS Hx/Imm Hx Endocrine/Hematology History: Denies: Hx Diabetes, Hx Thyroid Disease Cardiovascular History: Reports: Hx Hypertension - ON MEDICATION FOR Denies: Hx Pacemaker/ICD, Other Cardiovascular Problems/Disorders Respiratory History: Denies: Hx Asthma, Hx Chronic Obstructive Pulmonary Disease (COPD), Other Respiratory Problems/Disorders GI History: Reports: Hx Gastroesophageal Reflux Disease - ON MEDICATION FOR, Other GI Disorders - DIVERTICULITIS-CURRENTLY BEING TREATED FOR WITH ANTIBIOTIC Denies: Hx Ulcer History: Denies: Hx Renal Disease, Other Problems/Disorders Musculoskeletal History: Denies: Other Musculoskeletal History Sensory History: Reports: Hx Contacts or Glasses - GLASSES Denies: Hx Hearing Aid Opthamlomology History: Reports: Hx Contacts or Glasses - GLASSES Neurological History: Denies: Other Neuro Impairments/Disorders Psychiatric History: Denies: Hx Panic Disorder - Cancer History Hx Chemotherapy: No Hx Radiation Therapy: No - Surgical History Surgery Procedure, Year, and Place: TUBAL LIGATION 1980 Hx Anesthesia Reactions: No Infectious Disease History: No Infectious Disease History: Reports: Hx Hepatitis - "A"- AGE 10 Denies: Hx Clostridium Difficile, Hx Human Immunodeficiency Virus (HIV), Hx of Known/Suspected MRSA, Hx Shingles, Hx Tuberculosis, Hx Known/Suspected VRE, Traveled Outside the [place] in Last 30 Days - Family History Known Family History: Positive: Hypertension - Social History Alcohol Use: None Substance Use Type: Reports: None Hx Tobacco Use: No Smoking Status (MU): Never Smoked Tobacco Have You Smoked in the Last Year: No Review of Systems Positive: Abdominal Pain, Diarrhea. Negative: Vomiting, Nausea Negative: dysuria, discharge All Other Systems Reviewed And Are Negative: Yes Physical Exam - Summary Physical Exam Summary: Constitutional: Well-developed, Well-nourished, Alert. (-) Distressed Skin: Warm, Dry HENT: Normocephalic; Atraumatic Eyes: Conjunctiva normal Neck: Musculoskeletal ROM normal neck. (-) JVD, (-) Stridor, (-) Tracheal deviation Cardio: Rhythm regular, rate normal, Heart sounds normal; Intact distal pulses; The pedal pulses are 2+ and symmetric. Radial pulses are 2+ and symmetric. (-) Murmur Pulmonary/Chest wall: Effort normal. (-) Respiratory distress, (-) Wheezes, (-) Rales Abd: Soft, LLQ tenderness, (-) Distension, (-) Guarding, (-) Rebound Musculoskeletal: (-) Edema Lymph: (-) Cervical adenopathy Neuro: Alert, Oriented x3 Psych: Mood and affect Normal Triage Information Reviewed: Yes Vital Signs On Initial Exam: Initial Vitals Temp Pulse Resp BP Pulse Ox 97.1 F 98 18 128/95 96 06/11/19 07:38 06/11/19 07:38 06/11/19 07:38 06/11/19 07:38 06/11/19 07:38 Vital Signs Reviewed: Yes Procedures - Sedation Patient Received Moderate/Deep Sedation with Procedure: No Diagnostics - Vital Signs Vital Signs Temp Pulse Resp BP Pulse Ox 06/11/19 07:38 97.1 F 98 18 128/95 96 - Laboratory Result Diagrams: 06/11/19 08:32 06/11/19 08:32 Lab Statement: Any lab studies that have been ordered have been reviewed, and results considered in the medical decision making process. - CT Abd/Pel CT Interpretation Completed By: Radiologist Summary of CT Findings: Diverticulitis of the sigmoid colon. No evidence of peridiverticular abscess is noted. Large duodenal diverticulum is noted. Small 5 mm cyst in the nect of the pancreas not significantly changed since previous exam. ED Provider has reviewed this report. GIGU Course/Dx - Diagnoses Provider Diagnoses: Diverticulitis Discharge ED - Sign-Out/Discharge Documenting (check all that apply): Patient Departure - Discharge - Discharge Plan Condition: Stable Disposition: HOME Prescriptions: Amoxicillin/Clavulanate TAB* [Augmentin TAB 875*] 875 mg PO BID 10 Days #20 tab Patient Education Materials: Diverticulitis (ED) Referrals: Tiffany Lowe MD [Primary Care Provider] - Additional Instructions: Take your antibiotics as prescribed. Follow up with your primary care provider in 1-3 days. Return with severe worsening abdominal pain, high fever, chills, or any other concerning symptoms. Take Motrin and Tylenol for pain. - Attestation Statements Document Initiated by Scribe: Yes Documenting Scribe: Sameer Rosario Provider For Whom [employer] is Documenting (Include Credential): Bo Bello MD Scribe Attestation: Sameer Cook, scribed for Bo Bello MD on 06/11/19 at 0956. Status of Scribe Document: Ready
[2019-06-11] MEDS ORDERED: NS 0.9% 1000 ML** 1,000 ML IV ONE (08:15)
[2019-06-11 08:40] LABS: ABS Eosinophils 0.1 10^3/ul (0-0.6); ABS Lymphocytes 2.2 10^3/ul (1.0-4.8); ABS Monocytes 0.6 10^3/ul (0-0.8); ABS Neutrophils 7.4 10^3/ul (1.5-7.7); Eosinophil % 1.1 %; Hematocrit 39 % (35-47); Hemoglobin 13.5 g/dL (12.0-16.0); Mean Corpuscular HGB Conc 35 g/dL (31-36); Mean Corpuscular Hemoglobin 31 pg (27-31); Mean Corpuscular Volume 87 fL (80-97); Mean Platelet Volume 7.4 fL (7.4-10.4); Platelet Count 377 10^3/uL (150-450); Red Blood Count 4.42 10^6 /uL (3.70-4.87); Red Cell Distribution Width 13 % (10-15); White Blood Count 10.3 10^3/uL (3.5-10.8)
[2019-06-11 08:58] LABS: Calcium 9.7 mg/dL (8.6-10.3); EGFR African American 63.4 (>60); EGFR Non-African American 52.4 (>60); Globulin 3.9 g/dL (2-4); Potassium 3.6 mmol/L (3.5-5.0); Total Bilirubin 0.6 mg/dL (0.2-1.0); Total Protein 7.9 g/dL (6.4-8.9)
[2019-06-11] MEDS ORDERED: Iodixanol* (CONTRAST) 320 MG/ML 100 ML SDV IV ONE (09:03)
[2019-06-11 10:35] VITALS: BP 117/73
== END 2019-06-11 10:25 | disposition home or self-care (01) ==
LOC: ED 07:36
DX: K57.32 Diverticulitis of large intestine without perforation or abscess without bleeding (principal); K86.2 Cyst of pancreas; I10 Essential (primary) hypertension; K21.9 Gastro-esophageal reflux disease without esophagitis; Z79.899 Other long term (current) drug therapy; Z88.6 Allergy status to analgesic agent
CPT/HCPCS: 36415; 74177; 80053; 83690; 85025; 99282; Q9967